=== PATIENT | female | born 1970 | race Caucasian/White ===

== ENCOUNTER 2017-12-29 11:47 | Emergency (ER) | payer OTHER ==
[~2017-12-29] VITALS: Ht 167.6 cm; Wt 60.8 kg
[2017-12-29 12:32] LABS: BASOPHIL % 0.5 % (0-2); PLATELET COUNT 190 x10^3mcL (130-400)
[2017-12-29 12:42] LABS: RED CELL DISTRIBUTION WIDTH 20.7 % (11.5-14.5)
[2017-12-29 12:45] LABS: CALCIUM 9.3 mg/dL (8.5-10.1); CARBON DIOXIDE 20.7 mmol/L (21-32); CHLORIDE SERUM 106 mmol/L (98-107); GFR1 > 60 mL/min; GLUCOSE SERUM 108 mg/dL (74-106); SODIUM SERUM 137 mmol/L (136-145)
[2017-12-29 12:49] LABS: ALBUMIN 3.9 g/dL (3.4-5.0); ALKALINE PHOSPHATASE 56 U/L (46-116); ALT/SGPT 22 U/L (14-59); AST/SGOT 16 U/L (15-37); BILIRUBIN TOTAL 0.43 mg/dL (0.20-1.00); TOTAL PROTEIN, SERUM 7.2 g/dL (6.4-8.2)
[2017-12-29 12:59] LABS: FREE T4 0.99 ng/dL (0.76-1.46); FREE THYROXINE INDEX 2.3 ug/dL (1.4-4.5); T4(THYROXINE) 6.9 ug/dL (4.7-13.3)
[2017-12-29 13:18] LABS: T3 TOTAL 1.01 ng/mL
[2017-12-29 13:27] LABS: AMPHETAMINE QUAL UR NONE DETECTED (See below)
[2017-12-29 14:46] VITALS: BP 120/73
== END 2017-12-29 14:46 | disposition home or self-care (01) ==
LOC: ED 11:47
PROVIDERS: Emergency Medicine
DX: R00.2 Palpitations (principal); D64.9 Anemia, unspecified
CPT/HCPCS: 36415; 83880; 84439; J7030; Q0092

== ENCOUNTER 2018-01-11 15:13 | Emergency (ER) | payer OTHER ==
[~2018-01-11] VITALS: Ht 167.6 cm; Wt 60.3 kg
[2018-01-11 15:19] VITALS: Ht 167.6 cm; Wt 60.3 kg
[2018-01-11 16:55] LABS: BASOPHIL % 0.6 % (0-2); PLATELET COUNT 188 x10^3mcL (130-400)
[2018-01-11 16:56] LABS: RED CELL DISTRIBUTION WIDTH 18.1 % (11.5-14.5)
[2018-01-11 16:57] LABS: CALCIUM 9.6 mg/dL (8.5-10.1); CARBON DIOXIDE 22.5 mmol/L (21-32); CHLORIDE SERUM 105 mmol/L (98-107); CREATININE SERUM 0.9 mg/dL (0.6-1.0); GFR1 > 60 mL/min; GLUCOSE SERUM 89 mg/dL (74-106); POTASSIUM SERUM 3.6 mmol/L (3.5-5.1); SODIUM SERUM 140 mmol/L (136-145)
[2018-01-11 20:22] VITALS: BP 115/73
== END 2018-01-11 20:22 | disposition home or self-care (01) ==
LOC: ED 15:13
PROVIDERS: Emergency Medicine
DX: F41.9 Anxiety disorder, unspecified (principal); M32.9 Systemic lupus erythematosus, unspecified; Z88.6 Allergy status to analgesic agent
CPT/HCPCS: 83880; J2060; Q9967

== ENCOUNTER 2018-04-10 05:43 | Emergency (ER) | payer OTHER ==
[~2018-04-10] VITALS: Ht 167.6 cm; Wt 61.2 kg
[2018-04-10 05:50] VITALS: Ht 167.6 cm; Wt 61.2 kg
[2018-04-10 07:31] VITALS: BP 128/90
== END 2018-04-10 07:31 | disposition home or self-care (01) ==
LOC: ED 05:43
DX: F41.0 Panic disorder [episodic paroxysmal anxiety] (principal); M32.9 Systemic lupus erythematosus, unspecified; Z88.6 Allergy status to analgesic agent
CPT/HCPCS: J2060